=== PATIENT | male | born 1990 | race Caucasian/White ===

== ENCOUNTER 2020-08-18 07:12 | Outpatient (CLI) | payer MEDICAID, SELFPAY ==
--- NOTE | 2020-08-18 07:21 | USCV_ITS ---
Rogers Vazquez Age: 30 Gender: M : 1990 Exam Date: 08/18/2020 07:29 Ordering Phys: Beka Almonte MD ([email or web address]) Technologist: Viridiana Mosher Exam Location: [facility] – [place] Indication: CHEST PAIN BP: / HR: 76 Rhythm: Sinus Technical Quality: Very technically difficult study MEASUREMENTS (Male / Female) Normal Values 2D ECHO LV Diastolic Diameter PLAX 3.5 cm 4.2 - 5.9 / 3.9 - 5.3 cm LV Systolic Diameter PLAX 2.6 cm IVS Diastolic Thickness 1.3 cm 0.6 - 1.0 / 0.6 - 0.9 cm IVS Systolic Thickness 1.8 cm LVPW Diastolic Thickness 1.6 cm 0.6 - 1.0 / 0.6 - 0.9 cm LVPW Systolic Thickness 1.5 cm RV Chamber Size 3.2 cm LVOT Diameter 2.1 cm LV Ejection Fraction 2D Teich 50.6 % LV Ejection Fraction MOD 2C 60.0 % LV Ejection Fraction 2C AL 60.0 % LA Diameter 3.3 cm LA Width 3.0 cm LA Height 3.7 cm RA Width 3.3 cm RA Height 3.0 cm Aorta at Sinotubular Diameter 2.0 cm M-MODE LV Diastolic Diameter MM 3.5 cm 4.2 - 5.9 / 3.9 - 5.3 cm LV Systolic Diameter MM 2.1 cm LV Ejection Fraction MM Teich 71.2 % IVS Diastolic Thickness MM 1.0 cm 0.6 - 1.0 / 0.6 - 0.9 cm IVS Systolic Thickness MM 1.7 cm LVPW Diastolic Thickness MM 1.2 cm 0.6 - 1.0 / 0.6 - 0.9 cm LVPW Systolic Thickness MM 1.7 cm RV Diastolic Diameter MM 2.1 cm Aortic Annulus Diameter 3.4 cm LA Ao Ratio MM 1.1 MV E Point Septal Separation 0.3 cm DOPPLER AV Peak Velocity 125.3 cm/s LVOT Peak Velocity 104.7 cm/s AV Area Cont Eq vti 3.0 cm squared AV Area Cont Eq pk 2.9 cm squared MV Area PHT 4.4 cm squared Mitral E to A Ratio 2.1 MV E' Velocity 66.0 cm/s Mitral E to MV E' Ratio 8.3 Mitral E to LV E' Lateral Ratio 8.0 Mitral E to LV E' Septal Ratio 8.6 TR Peak Velocity 232.0 cm/s TR Peak Gradient 21.5 mmHg TR Mean Velocity 127.0 cm/s TR Mean Gradient 8.3 mmHg TR Velocity Time Integral 52.9 cm TV Peak E Velocity 91.7 cm/s Right Atrial Pressure 3.0 mmHg Pulmonary Artery Systolic Pressu 24.5 mmHg PV Peak Velocity 60.0 cm/s RV Acceleration Time 0.2 s RV Ejection Time 0.4 s RV AcT/ET 0.4 FINDINGS Left Ventricle Normal left ventricular size with slightly diminished ejection fraction of 50%. Mild diffuse hypokinesia of the septum and anteroseptal segments. Has dextrocardia Right Ventricle Appears to be of normal size and ejection fraction Right Atrium Mildly increased right atrial size. Left Atrium Normal left atrial size. Echodensities in the interatrial septum. Mitral Valve No gross abnormalities noted Aortic Valve Appears to be tricuspid Tricuspid Valve Moderate tricuspid valve regurgitation. Estimated pulmonary artery peak systolic pressure of 25 mmHg. Pulmonic Valve Pulmonic valve not well visualized. Pericardium No pericardial effusion. Aorta Normal aortic annulus size. CONCLUSIONS 1. Dextrocardia. 2. Normal LV size with a slightly diminished vision fraction of 50%. Wall motion normalities as mentioned above. 3. The echodensities in the interatrial septum may suggest ASD repair 4. Mildly dilated physiological right atrium 5. Moderate tricuspid regurgitation with an estimated pulmonary artery peak systolic pressure 25 mmHg No previous studies available for comparison Dr Beka Almonte MD [facility] (Electronically Signed) Final Date: 18 August 2020 16:44 S
== END 2020-08-18 07:13 | disposition home or self-care (01) ==
LOC: US 07:16
PROVIDERS: Visit Provider Internal Medicine Cardiovascular Disease
DX: R07.89 Other chest pain (principal); I07.1 Rheumatic tricuspid insufficiency
CPT/HCPCS: 93306

== ENCOUNTER 2020-10-25 13:07 | Outpatient (CLI) | payer MEDICAID, SELFPAY ==
[2020-10-25 13:10] VITALS: BMI 29.0
--- NOTE | 2020-10-25 13:16 | ECG_ITS ---
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 Interpretive Statements NAME OF STUDY: TREADMILL STRESS TEST INDICATION: Chest Pain PROCEDURE: At the baseline, the patient's blood pressure was 129/70 with a heart rate of 80/min. The baseline electrocardiogram showed normal sinus rhythm with right bundle branch block pattern The patient exercised for 5 minutes and 23 seconds on a standard Ollie protocol. Patient attained a maximum heart rate of 172 beats per minute(90% of the maximum predicted heart rate) with a blood pressure at the peak exercise of 183/75 mm Hg. The EKG at the peak exercise revealed did not show any significant EKG changes. Few PVCs were noted with the peak exercise, in the form of bigeminy. Patient did not have any chest pain or any significant other arrhythmias with the exercise During the recovery phase, there were no new changes. Blood pressure at the end of the recovery phase was 145/85 mm Hg with a heart rate of 87 per minute. CONCLUSION: 1. Nonspecific EKG response to treadmill exercise 2. Some exercise-induced ventricular arrhythmia 3. Impaired exercise tolerance, attained a maximum of 7.0METs Electronically Signed On 10-27-2020 17:49:04 CDT by Beka Almonte M.D. [id number]
[2020-10-25 13:51] VITALS: BP 145/88; PULSE 87
== END 2020-10-25 13:08 | disposition home or self-care (01) ==
LOC: CDL 13:07
PROVIDERS: Visit Provider Internal Medicine Cardiovascular Disease
DX: R07.89 Other chest pain (principal)
CPT/HCPCS: 93017